=== PATIENT | female | born 1950 | race Caucasian/White ===

== ENCOUNTER → 2018-02-09 | Outpatient (CLI) | payer OTHER ==
[~2018-02-09] MED LIST: BIOT1TAB5 PO; CALC200T PO; CETI10TA84 PO; LEVO75TA PO; MULTCHW PO; NAPR1TAB9 PO; POTA8CAP6 PO; PSYL0.524 PO; SENNTAB23 PO
--- NOTE | 2018-02-09 13:09 | DIAGNOSTIC IMAGING REPORT ---
CHEST 2 VIEWS ROUTINE CLINICAL HISTORY: PAT preoperative evaluation COMPARISON STUDY: 11/16/2012 FINDINGS: The bones soft tissues and hemidiaphragms are normal. The cardiomediastinal silhouette is normal. The lungs are clear. The pulmonary vasculature is normal. IMPRESSION: Negative chest. The above report was generated using voice recognition software. It may contain grammatical, syntax or spelling errors. Electronically signed by: Zak Hernandez M.D. 02/09/2018 1:08 PM Dictated Date/Time: 02/09/2018 1:08 PM
[2018-02-09 13:18] LABS: BASO % 1.2 %; BASO ABS # 0.09 K/uL (0-0.2); EOS % 2.4 %; EOS ABS # 0.18 K/uL (0-0.5); HEMOGLOBIN 14.4 g/dL (12.0-16.0); IG# 0.01 K/uL (0.00-0.02); LYMPH % 33.4 %; LYMPH ABS # 2.48 K/uL (1.2-3.4); MEAN CELL VOLUME 94.6 fL (80-100); MEAN CORPUSCULAR HGB CONC 32.7 g/dl (32-36); MEAN PLATELET VOLUME 12.3 fL (7.4-10.4); MONO ABS # 0.37 K/uL (0.11-0.59); NEUT % 57.9 %; PLATELET COUNT 270 K/uL (130-400); RED CELL DISTRIBUTION WIDTH CV 12.5 % (11.5-14.5); RED CELL DISTRIBUTION WIDTH SD 42.8 fL (36.4-46.3); WHITE BLOOD COUNT 7.43 K/uL (4.8-10.8)
[2018-02-09 13:21] LABS: HEMOGLOBIN A1C 5.4 % (4.5-5.6)
[2018-02-09 13:29] LABS: PTT PATIENT 27.3 SECONDS (21.0-31.0)
[2018-02-09 14:00] LABS: BLOOD UREA NITROGEN 21 mg/dl (7-18); CREATININE 0.71 mg/dl (0.60-1.20); GLUCOSE 91 mg/dl (70-99)
[2018-02-09 14:01] LABS: ALBUMIN 3.9 gm/dl (3.4-5.0); CALCIUM 8.8 mg/dl (8.5-10.1); CARBON DIOXIDE 28 mmol/L (21-32); POTASSIUM 4.6 mmol/L (3.5-5.1); SODIUM 138 mmol/L (136-145)
== END | disposition home or self-care (01) ==
LOC: C.CPL 12:11
PROVIDERS: ATTEND Orthopaedic Surgery
DX: Z01.810 Encounter for preprocedural cardiovascular examination (principal); Z01.811 Encounter for preprocedural respiratory examination; Z01.812 Encounter for preprocedural laboratory examination